=== PATIENT | female | born 1950 | race Hispanic/Latino ===

== ENCOUNTER 2020-12-05 06:49 | Emergency (ER) | payer OTHER ==
[2020-12-05 07:19] LABS: Absolute Lymphocytes (CBC) 4.5 K/uL (0.7-4.9); Basophils % 0.5 % (0-1.3); Lymphocytes % 27.5 % (15.3-44.8); RBC Red Blood Cell Count 3.19 M/uL (3.86-4.86)
[2020-12-05 07:29] LABS: Protime INR 0.96
[2020-12-05] MEDS ORDERED: PANTOPRAZOLE INJ 80 MG in NA CHLORIDE 0.9% 250 ML IV ONE (08:00)
[2020-12-05] MEDS ORDERED: NA CHLORIDE 0.9% 1,000 ML ONE (08:13)
[2020-12-05] MEDS ORDERED: ONDANSETRON 4 MG/2 ML VIAL ONE (08:13)
--- NOTE | 2020-12-05 08:31 | RAD REPORT ---
EXAM DESCRIPTION: CT - Abdomen Pelvis W Contrast - 12/05/2020 7:33 am CLINICAL HISTORY: ABD PAIN COMPARISON: No comparisons TECHNIQUE: Biphasic, helical CT imaging of the abdomen and pelvis was performed following 100 ml non -ionic IV contrast. No oral contrast administered. All CT scans are performed using dose optimization technique as appropriate and may include automated exposure control or mA/KV adjustment according to patient size. FINDINGS: No suspicious findings in the lung bases. The liver, spleen, and pancreas show no suspicious findings. Gallbladder and biliary tree are also wi thout suspicious finding. Liver is borderline fatty infiltrated. Symmetric renal function is seen with no hydronephrosis or suspicious renal mass. No pyelonephritis o r acute parenchymal process. Air is present within the lumen of the urinary bladder presumed to be fr om a catheterization procedure. This needs correlation. No adrenal abnormalities. No uterine abnormal ity or ovarian abnormality seen. No gastric dilatation or gastric wall thickening seen. No small bowel abnormality. The appendix is no rmal. No colon dilatation. No gross evidence for a colon mass. Hemorrhoids or small mucosal lesions c an be occult on CT imaging. No free air, free fluid or inflammatory stranding. No hernia, mass or bulky lymphadenopathy. No suspicious bony findings. Degenerative and postsurgical changes are present in the lumbar spine. IMPRESSION: Contrast enhanced CT abdomen and pelvis showing no acute or emergent finding. No gross evidence for a colon abnormality. Hemorrhoids and small mucosal lesions, possible sources fo r blood, can be occult on CT imaging. Air within the lumen of the urinary bladder is presumed to be from a catheterization procedure. This needs correlation. 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
[2020-12-05 08:51] LABS: ALT/SGPT 21 U/L (12-78); AST/SGOT 6 U/L (15-37); Albumin 2.4 g/dL (3.4-5.0); Alkaline Phosphatase 75 U/L (45-117); BUN Blood Urea Nitrogen 20 mg/dL (7-18); Bicarbonate 23 mmol/L (21-32); Bilirubin Direct < 0.1 mg/dL (0-0.2); Bilirubin Total 0.2 mg/dL (0.2-1.0); Glucose Level 359 mg/dL (74-106); Lipase 114 U/L (73-393); Potassium 4.1 mmol/L (3.5-5.1); Protein, Total 5.9 g/dL (6.4-8.2); Sodium Level 133 mmol/L (136-145)
--- NOTE | 2020-12-05 10:10 | EDPHYS ---
Physician Documentation [facility] Name: Mary Kim Age: 70 yrs Sex: Female : 1950 Arrival Date: 12/05/2020 Time: 07:01 Bed 4 Private MD: ED Physician Leann Dillard HPI: 12/05 08:53 This 70 yrs old Female presents to ER via EMS with complaints of GI Bleeding. ma2 08:53 The patient presents to the emergency department with rectal bleeding, a moderate ma2 amount. Onset: The symptoms/episode began/occurred suddenly, 3 hour(s) ago. Associated signs and symptoms: Pertinent negatives: dizziness at rest, fever, shortness of breath, near-syncope, vomiting. Severity of symptoms: At their worst the symptoms were moderate in the emergency department the symptoms are unchanged. The patient has not experienced similar symptoms in the past. Historical: - Allergies: 07:04 No Known Allergies; bb - Home Meds: 07:05 metformin 500 mg oral TG24 1 tabs daily [Active]; losartan 100 mg oral tab 1 tab once bp daily [Active]; duloxetine 30 mg oral cpDR 1 cap once daily [Active]; atorvastatin 20 mg oral tab 1 tab once daily [Active]; esomeprazole magnesium 40 mg oral cpDR 1 cap once daily [Active]; Spiriva Respimat 2.5 mcg/actuation inhalation mist 2 puffs once daily [Active]; gabapentin enacarbil oral 300 MG oral 1 tab three times a day [Active]; Breo Ellipta 200-25 mcg/dose inhalation dsdv 1 puff once daily [Active]; Nifedipine ER 30 MG Oral 30 mg daily [Active]; montelukast 10 mg oral tab 1 tab once daily [Active]; aspirin 81 mg Oral TbEC 1 tab once daily [Active]; albuterol sulfate 90 mcg/actuation Inhl HFAA 2 puffs every 4-6 hours [Active]; - PMHx: 07:04 Diabetes - NIDDM; Hypertension; bb - PSHx: 07:04 back surgery; arm surgery; L hip replacement; oophorectomy; bb - Immunization history:: Adult Immunizations up to date. - Social history:: Smoking status: Patient denies any tobacco usage or history of. Patient/guardian denies using alcohol, street drugs, The patient lives with family. - Family history:: not pertinent. ROS: 08:53 Constitutional: Negative for fever, chills, and weight loss, Cardiovascular: Negative ma2 for chest pain, palpitations, and edema, Respiratory: Negative for shortness of breath, cough, wheezing, and pleuritic chest pain, Abdomen/GI: Negative for abdominal pain, nausea, diarrhea, and constipation, Back: Negative for injury and pain, MS/Extremity: Negative for injury and deformity, Skin: Negative for injury, rash, and discoloration, Neuro: Negative for headache, weakness, numbness, tingling, and seizure, Psych: Negative for depression, anxiety, suicide ideation, homicidal ideation, and hallucinations. Exam: 08:53 Constitutional: This is a well developed, well nourished patient who is awake, alert, ma2 and in no acute distress. Neck: Trachea midline, no thyromegaly or masses palpated, and no cervical lymphadenopathy. Supple, full range of motion without nuchal rigidity, or vertebral point tenderness. No Meningismus. Chest/axilla: Normal chest wall appearance and motion. Nontender with no deformity. No lesions are appreciated. Cardiovascular: Regular rate and rhythm with a normal S1 and S2. No gallops, murmurs, or rubs. Normal PMI, no JVD. No pulse deficits. Respiratory: Lungs have equal breath sounds bilaterally, clear to auscultation and percussion. No rales, rhonchi or wheezes noted. No increased work of breathing, no retractions or nasal flaring. Abdomen/GI: Soft, non-tender, with normal bowel sounds. No distension or tympany. No guarding or rebound. No evidence of tenderness throughout. Back: No spinal tenderness. No costovertebral tenderness. Full range of motion. Skin: Warm, dry with normal turgor. Normal color with no rashes, no lesions, and no evidence of cellulitis. MS/ Extremity: Pulses equal, no cyanosis. Neurovascular intact. Full, normal range of motion. Neuro: Awake and alert, GCS 15, oriented to person, place, time, and situation. Cranial nerves II-XII grossly intact. Motor strength 5/5 in all extremities. Sensory grossly intact. Cerebellar exam normal. Normal gait. Vital Signs: 07:01 BP 139 / 80; Pulse 96; Resp 18 S; Temp 98.6(O); Pulse Ox 100% on R/A; Weight 95.25 kg bb (R); Height 5 ft. 5 in. (165.10 cm) (R); Pain 0/10; 08:15 BP 122 / 52; Pulse 84; Resp 16; Pulse Ox 96% on R/A; bp 09:15 BP 117 / 47; Pulse 99; Resp 16; Pulse Ox 96% ; bp 10:30 BP 109 / 51; Pulse 95; Resp 17; Pulse Ox 96% ; bp 11:30 BP 117 / 42; Pulse 89; Resp 17; Temp 98.5; Pulse Ox 96% ; bp 07:01 Body Mass Index 34.95 (95.25 kg, 165.10 cm) bb MDM: 07:02 Patient medically screened. ma2 08:53 Differential diagnosis: gastritis, diverticulitis, hemorrhoids, varices. ma2 09:51 Data reviewed: vital signs, nurses notes. Counseling: I had a detailed discussion with ma2 the patient and/or guardian regarding: the historical points, exam findings, and any diagnostic results supporting the discharge/admit diagnosis, the presence of at least one elevated blood pressure reading (>120/80) during this emergency department visit, the need for outpatient follow up. Response to treatment: the patient's symptoms have markedly improved after treatment. ED course: patient had melena in er hb and vs stable . 10:07 Special discussion: paitient needs gi service, not available in our hospital. will ma2 transfer for higher level of care. discussed with dr. [facility] at [facility] and accepted for a transfer . 12/05 07:06 Order name: Basic Metabolic Panel [facility] 12/05 07:06 Order name: CBC with Diff; Complete Time: 08:31 rr5 12/05 07:06 Order name: Hepatic Function; Complete Time: 08:52 rr5 12/05 07:06 Order name: Lipase; Complete Time: 08:52 rr5 12/05 07:06 Order name: TS rr5 12/05 07:06 Order name: Lactate; Complete Time: 08:31 rr5 12/05 07:07 Order name: Basic Metabolic Panel; Complete Time: 08:52 EDMS 12/05 07:09 Order name: PT-INR; Complete Time: 08:31 ma2 12/05 07:09 Order name: Ptt, Activated; Complete Time: 08:31 [facility] 12/05 07:47 Order name: CREATININE WHOLE BLOOD; Complete Time: 08:31 EDMS 12/05 08:24 Order name: Bb Add On eb 12/05 08:45 Order name: ABO/RH no charge; Complete Time: 08:52 EDMS 12/05 07:06 Order name: IV Saline Lock; Complete Time: 07:06 5 12/05 07:06 Order name: Labs collected and sent; Complete Time: 07:06 [facility] 12/05 07:09 Order name: CT Abd/Pelvis - IV Contrast Only; Complete Time: 08:52 [facility] 12/05 07:27 Order name: Labs - recollect needed: recollect chemistry tube abd collect abo no eb charge; Complete Time: 07:30 12/05 09:52 Order name: SARS-COV-2 RT PCR; Complete Time: 10:03 EDMS 12/05 10:05 Order name: Blood Culture Adult (2) [facility] 12/05 10:53 Order name: Lactate Sepsis 2 HR Follow-up EDMS Administered Medications: 07:30 Drug: NS 0.9% 1000 ml Route: IV; Rate: 1 bolus; Site: left antecubital; bp 11:10 Follow up: IV Status: Completed infusion; IV Intake: 100ml bp 08:00 Drug: Pantoprazole 8 mg/hr Route: IV; Rate: 25 ml/hr; Site: left antecubital; bp 11:10 Follow up: IV Status: Infusion continued upon transfer bp 08:00 Drug: Zofran (Ondansetron) 4 mg Route: IVP; Site: left antecubital; bp 11:09 Follow up: Response: No adverse reaction bp 10:30 Drug: Rocephin (cefTRIAXone) 1 grams Route: IV; Rate: calculated rate; Site: left bp antecubital; 11:09 Follow up: IV Status: Completed infusion; IV Intake: 50ml bp 10:30 Drug: Flagyl 500 mg Volume: 100 ml; Route: IVPB; Rate: 200 ml/hr; Infused Over: 30 bp mins; Site: left antecubital; 11:10 Follow up: IV Status: Completed infusion; IV Intake: 100ml bp Disposition: 12/05/20 10:09 Transfer ordered to Other Acute Care Facility. Diagnosis are Gastrointestinal hemorrhage, unspecified, Melena. - Reason for transfer: Higher level of care. - Accepting physician is Dr. Kincaid. - Condition is Stable. - Problem is new. - Symptoms are unchanged. Signatures: Dispatcher [employer] EDMS Suzanne Raza, RN RN Raz Blake RN RN bp Leann Dillard MD MD ma2 Kendra Lafleur Raymond, RN RN rr5 Corrections: (The following items were deleted from the chart) 07: 07:04 Home Meds: Metformin Oral; bb bp 07:22 07:04 Home Meds: losartan oral oral; bb bp 09: 08:27 CORONAVIRUS+MR.LAB.BRZ ordered. EDWI EDMS 12:00 10:09 12/05/2020 10:09 Transfer ordered to Other Acute Care Facility. Diagnosis is bp Gastrointestinal hemorrhage, unspecified; Melena. Reason for transfer: Higher level of care. Accepting physician is Dr. Kincaid. Condition is Stable. Problem is new. Symptoms are unchanged. ma2
--- NOTE | 2020-12-05 10:10 | ER ---
Nurse's Notes [facility] Name: Mary Kim Age: 70 yrs Sex: Female : 1950 Arrival Date: 12/05/2020 Time: 07:01 Bed 4 Private MD: Diagnosis: Gastrointestinal hemorrhage, unspecified;Melena Presentation: 12/05 07:01 Chief complaint: EMS states: they were toned out for report of pt passing out during a bb bowel movement and waking up in a pool of blood on their arrival pt was hypotensive, tachycardic. Coronavirus screen: At this time, the client does not indicate any symptoms associated with coronavirus-19. Ebola Screen: No symptoms or risks identified at this time. Initial Sepsis Screen: Does the patient meet any 2 criteria? No. Patient's initial sepsis screen is negative. Does the patient have a suspected source of infection? No. Patient's initial sepsis screen is negative. Risk Assessment: Do you want to hurt yourself or someone else? Patient reports no desire to harm self or others. Onset of symptoms was December 05, 2020. 07:01 Method Of Arrival: EMS: [facility] 07:01 Acuity: ELIZABETH 3 bb 07:05 Care prior to arrival: Medication(s) given: Normal saline infusion, 1000 mL, zofran 4 bb mg, IV initiated. 18 GA, in the left antecubital area. Triage Assessment: 07:05 General: Appears distressed, uncomfortable, obese, Behavior is calm, cooperative, bp appropriate for age. Pain: Denies pain. EENT: Sclera/Cornea PALE. Neuro: Level of Consciousness is awake, alert, obeys commands, Oriented to Appropriate for age. Cardiovascular: No deficits noted. Rhythm is sinus rhythm. Respiratory: No deficits noted. GI: Reports rectal bleeding. : No signs and/or symptoms were reported regarding the genitourinary system. Derm: Skin is pale, Skin temperature is cool. Musculoskeletal: No deficits noted. Historical: - Allergies: 07:04 No Known Allergies; bb - Home Meds: 07:05 metformin 500 mg oral TG24 1 tabs daily [Active]; losartan 100 mg oral tab 1 tab once bp daily [Active]; duloxetine 30 mg oral cpDR 1 cap once daily [Active]; atorvastatin 20 mg oral tab 1 tab once daily [Active]; esomeprazole magnesium 40 mg oral cpDR 1 cap once daily [Active]; Spiriva Respimat 2.5 mcg/actuation inhalation mist 2 puffs once daily [Active]; gabapentin enacarbil oral 300 MG oral 1 tab three times a day [Active]; Breo Ellipta 200-25 mcg/dose inhalation dsdv 1 puff once daily [Active]; Nifedipine ER 30 MG Oral 30 mg daily [Active]; montelukast 10 mg oral tab 1 tab once daily [Active]; aspirin 81 mg Oral TbEC 1 tab once daily [Active]; albuterol sulfate 90 mcg/actuation Inhl HFAA 2 puffs every 4-6 hours [Active]; - PMHx: 07:04 Diabetes - NIDDM; Hypertension; bb - PSHx: 07:04 back surgery; arm surgery; L hip replacement; oophorectomy; bb - Immunization history:: Adult Immunizations up to date. - Social history:: Smoking status: Patient denies any tobacco usage or history of. Patient/guardian denies using alcohol, street drugs, The patient lives with family. - Family history:: not pertinent. Screenin:05 Abuse screen: Denies threats or abuse. Denies injuries from another. Nutritional bp screening: No deficits noted. Tuberculosis screening: No symptoms or risk factors identified. Fall Risk Fall in past 12 months (25 points). No secondary diagnosis (0 pts). IV access (20 points). Ambulatory Aid- None/Bed Rest/Nurse Assist (0 pts). Gait- Normal/Bed Rest/Wheelchair (0 pts) Mental Status- Oriented to own ability (0 pts). Total Lynch Fall Scale indicates High Risk Score (45 or more points). Fall prevention measures have been instituted. Side Rails Up X 2 Placed Close to Nursing Station Frequent Obs/Assessments Occuring As available patient and family educated on Fall Prevention Program and Strategies. Assessment: 07:05 General: SEE TRIAGE NOTE. bp 07:25 Reassessment: No changes from previously documented assessment. Patient and/or family bp updated on plan of care and expected duration. Pain level reassessed. Patient is alert, oriented x 3, equal unlabored respirations, skin warm/dry/pink. PT TO CT. 07:29 Reassessment: ASHLEY (DAUGHTER) [phone]. bp 08:18 Reassessment: No changes from previously documented assessment. Patient and/or family bp updated on plan of care and expected duration. Pain level reassessed. Patient is alert, oriented x 3, equal unlabored respirations, skin warm/dry/pink. ALL CURRENT ORDERS COMPLETED, RESULTS PENDING. 09:26 Reassessment: No changes from previously documented assessment. Patient and/or family bp updated on plan of care and expected duration. Pain level reassessed. Patient is alert, oriented x 3, equal unlabored respirations, skin warm/dry/pink. PT CONSENTED FOR PRBC TRANSFUSION, BUT TRANSFUSION ON HOLD PER MD. 11:45 Reassessment: REPORT TO OLESYA SCHNEIDER AT [facility]. TRANSPORT PENDING. bp Vital Signs: 07:01 BP 139 / 80; Pulse 96; Resp 18 S; Temp 98.6(O); Pulse Ox 100% on R/A; Weight 95.25 kg bb (R); Height 5 ft. 5 in. (165.10 cm) (R); Pain 0/10; 08:15 BP 122 / 52; Pulse 84; Resp 16; Pulse Ox 96% on R/A; bp 09:15 BP 117 / 47; Pulse 99; Resp 16; Pulse Ox 96% ; bp 10:30 BP 109 / 51; Pulse 95; Resp 17; Pulse Ox 96% ; bp 11:30 BP 117 / 42; Pulse 89; Resp 17; Temp 98.5; Pulse Ox 96% ; bp 07:01 Body Mass Index 34.95 (95.25 kg, 165.10 cm) bb ED Course: 07:00 Maintain EMS IV. Dressing intact. Good blood return noted. Site clean \T\ dry. Gauge \T\ rr 5 site: G18 left AC. 07:00 Initial lab(s) drawn, by me, sent to lab. rr5 07:01 Patient arrived in ED. bb 07:02 Leann Dillard MD is Attending Physician. ma2 07:03 Triage completed. bb 07:04 Arm band placed on Patient placed in an exam room, on a stretcher, on production graphic designer, bb on pulse oximetry. 07:05 Raz Galindo, WYATT is Primary Nurse. bp 07:05 Patient has correct armband on for positive identification. Bed in low position. Call bp light in reach. Side rails up X2. wallpaper printer helper on. Pulse ox on. NIBP on. 07:08 Basic Metabolic Panel Sent. bp 07:33 CT Abd/Pelvis - IV Contrast Only In Process Unspecified. EDMS 09:27 initiated a transfer with SOLIS Cruz from the [facility]. eb 10:[address] Duque the hospitalist housing relocation for [facility] with for patient transfer consultation. 10:46 administrative approval given by SOLIS Cruz/ patient has been accepted to [facility] 5th floor room 504/ Dr. Romelia Duque has accepted the patient in transfer/ report to be called to [phone]. 12:00 No provider procedures requiring assistance completed. Patient transferred, IV remains bp in place. Administered Medications: 07:30 Drug: NS 0.9% 1000 ml Route: IV; Rate: 1 bolus; Site: left antecubital; bp 11:10 Follow up: IV Status: Completed infusion; IV Intake: 100ml bp 08:00 Drug: Pantoprazole 8 mg/hr Route: IV; Rate: 25 ml/hr; Site: left antecubital; bp 11:10 Follow up: IV Status: Infusion continued upon transfer bp 08:00 Drug: Zofran (Ondansetron) 4 mg Route: IVP; Site: left antecubital; bp 11:09 Follow up: Response: No adverse reaction bp 10:30 Drug: Rocephin (cefTRIAXone) 1 grams Route: IV; Rate: calculated rate; Site: left bp antecubital; 11:09 Follow up: IV Status: Completed infusion; IV Intake: 50ml bp 10:30 Drug: Flagyl 500 mg Volume: 100 ml; Route: IVPB; Rate: 200 ml/hr; Infused Over: 30 bp mins; Site: left antecubital; 11:10 Follow up: IV Status: Completed infusion; IV Intake: 100ml bp Intake: 11:09 IV: 50ml; Total: 50ml. bp 11:10 IV: 100ml; Total: 150ml. bp 11:10 IV: 100ml; Total: 250ml. bp Outcome: 10:09 ER care complete, transfer ordered by MD. [place]anton 11:56 Transferred by ground EMS to [facility]. bp 11:56 Condition: stable 11:56 Instructed on the need for transfer. 12:00 Patient left the ED. bp Signatures: Dispatcher [employer] EDMS Suzanne Raza RN RN Raz Blake RN RN bp Leann Dillard MD MD ma2 Kendra Lafleur Raymond RN RN rr5 Corrections: (The following items were deleted from the chart) 07:06 07:05 Care prior to arrival: Medication(s) given: Normal saline infusion, 1000 mL, IV bb initiated. 18 GA, in the left antecubital area, bb 07: 07:04 Home Meds: Metformin Oral; bb bp 07:22 07:04 Home Meds: losartan oral oral; bb bp
[2020-12-05] MEDS ORDERED: METRONIDAZOLE 500mg IVPB 500 MG/100 ML BAG IV ONE (10:50)
[2020-12-05] MEDS ORDERED: CEFTRIAXONE/SWI 1gm 1 GM/10 ML SYR ONE (10:50)
[2020-12-06 02:08] VITALS: O2SAT 96
[2020-12-06 02:12] VITALS: BP 117/42; TEMP 98.5
== END 2020-12-05 12:00 ==
LOC: ER 06:49
DX: K92.1 Melena (principal); Z20.822 Contact with and (suspected) exposure to COVID-19; I10 Essential (primary) hypertension; E11.9 Type 2 diabetes mellitus without complications; Z79.82 Long term (current) use of aspirin; Z96.642 Presence of left artificial hip joint
CPT/HCPCS: 96365; 96367; 87040 ×2; 85025; 80048; 36415; 86900; 86850; 85610; 82565; 86901; 80076; 83605 ×2; 85730; 83690; 74177; 96375; 99285; U0003; Q9967; C9113; J0696; J7050; J7030; J2405

== ENCOUNTER 2021-08-18 17:19 | Emergency (ER) | payer OTHER ==
--- OUTSIDE RECORDS SUMMARY | 2021-08-18 17:23 | XMS REPORT | Continuity of Care Document ---
:1950 Author Organization [facility] t Address [address] [place] [address] Care Team Providers Name Role Phone THALIA Attending Clinician Unavailable THALIA Admitting Clinician Unavailable Problems This patient has no known problems. Allergies, Adverse Reactions, Alerts Allergy Allergy Status Severity Reaction(s) Onset Inactive Treating Comm ents Source Name Type Date Date Clinician IODINE Allergy Active High Swelling [facility] - IOD[facility]: [facility] 00 [facility] NG PRODUCTS Medications This patient has no known medications. Vital Signs Vital Name Observation Time Observation Value Comments Source WEIGHT 2020-12-05 16:27:00 95.255 kg HEIGHT 2020-12-05 16:27:00 157.5 cm WEIGHT 2020-12-05 16:27:00 95.255 kg HEIGHT 2020-12-05 16:27:00 157.5 cm Procedures This patient has no known procedures. Encounters Start End Encounter Admission Attending Care Care Encounter Source Date/Time Date/Time Type Type Clinicians Facility Department ID 2021-06-13 Inpatient ER CECILIO VÁSQUEZ Gastro [id number] [facility] 11:15:23 ADILSON Results Test Description Test Time Test Comments Results Result Comments Source POCT-GLUCOSE METER 2020-12-11 11:49:00 Test Item Value Reference Range Interpretation Comme nts POC-GLUCOSE METER (BEAKER) 182 mg/dL 70-110 H : TESTED AT [facility] [address] [facility] (test code = 1538) [facility] [address]: [facility] [employer] Manager/Techni sarath ID = [id number] for Lilliana Bender HEMOGLOBIN AND [id number] 10:49:00 Test Item Value Reference Range Interpretation Comments HEMOGLOBIN (BEAKER) (test code = 8.6 GM/DL 12.0-15.5 L 410) HEMATOCRIT (BEAKER) (test code = 27.0 % 36.0-46.0 L 411) POCT-GLUCOSE [id number] 07:43:00 Test Item Value Reference Range Interpretation Comments POC-GLUCOSE METER 166 mg/dL 70-110 H : TESTED A T [facility] [address] (BEAKER) (test code [address], = 1538) [facility] [address]: [facility] [employer] Manager/Techni sarath ID = [id number] for Lilliana Santoro BASIC METABOLIC [id number] 06:05:00 Test Item Value Reference Range Interpretation Comments SODIUM (BEAKER) (test 143 meq/L 135-148 code = 381) POTASSIUM (BEAKER) 4.0 meq/L 3.6-5.5 (test code = 379) CHLORIDE (BEAKER) 109 meq/L 98-106 H (test code = 382) CO2 (BEAKER) (test 25 meq/L 20-29 code = 355) BLOOD UREA NITROGEN 9 mg/dL 10-26 L (BEAKER) (test code = 354) CREATININE (BEAKER) 0.85 mg/dL 0.50-1.20 (test code = 358) GLUCOSE RANDOM 177 mg/dL 70-110 H (BEAKER) (test code = 652) CALCIUM (BEAKER) 8.5 mg/dL 8.5-10.5 (test code = 697) EGFR (BEAKER) (test INSUFFIC IENT CLINICAL code = 1092) DATA TO CALCULA TE ESTIMATED GFR. [facility] Manager ID - LITOOperator ID - LITOOperator ID - LITOOperator ID - LITOOperator ID - LITOOperator ID - LITOOperator ID - LITOOperator ID - LITOOperator ID - LITOOperator ID - LITOOperator ID - LITOOperator ID - LITOOperator ID - LITOCBC W/PLT COUNT & AUTO [id number] 05:46:00 Test Item Value Reference Range Interpretation Comments WHITE BLOOD CELL COUNT (BEAKER) 9.4 K/ L 4.0-10.0 (test code = 775) RED BLOOD CELL COUNT (BEAKER) 2.68 M/ L 4.00-5.00 L (test code = 761) HEMOGLOBIN (BEAKER) (test code = 7.9 GM/DL 12.0-15.5 L 410) HEMATOCRIT (BEAKER) (test code = 25.2 % 36.0-46.0 L 411) MEAN CORPUSCULAR VOLUME (BEAKER) 94.0 fL 82.0-99.0 (test code = 753) MEAN CORPUSCULAR HEMOGLOBIN 29.5 pg 27.0-33.0 (BEAKER) (test code = 751) MEAN CORPUSCULAR HEMOGLOBIN CONC 31.3 GM/DL 32.0-36.0 L (BEAKER) (test code = 752) RED CELL DISTRIBUTION WIDTH 13.5 % 12.0-15.0 (BEAKER) (test code = 412) PLATELET COUNT (BEAKER) (test 281 K/CU MM 150-430 code = 756) MEAN PLATELET VOLUME (BEAKER) 11.6 fL 6.0-11.5 H (test code = 754) NUCLEATED RED BLOOD CELLS 0 /100 WBC 0-0 (BEAKER) (test code = 413) NEUTROPHILS RELATIVE PERCENT 53 % (BEAKER) (test code = 429) LYMPHOCYTES RELATIVE PERCENT 32 % (BEAKER) (test code = 430) MONOCYTES RELATIVE PERCENT 10 % (BEAKER) (test code = 431) EOSINOPHILS RELATIVE PERCENT 4 % (BEAKER) (test code = 432) BASOPHILS RELATIVE PERCENT 1 % (BEAKER) (test code = 437) NEUTROPHILS ABSOLUTE COUNT 4.99 K/ L 1.80-8.00 (BEAKER) (test code = 670) LYMPHOCYTES ABSOLUTE COUNT 2.98 K/ L 1.48-4.50 (BEAKER) (test code = 414) MONOCYTES ABSOLUTE COUNT (BEAKER) 0.94 K/ L 0.00-1.30 (test code = 415) EOSINOPHILS ABSOLUTE COUNT 0.38 K/ L 0.00-0.50 (BEAKER) (test code = 416) BASOPHILS ABSOLUTE COUNT (BEAKER) 0.06 K/ L 0.00-0.20 (test code = 417) IMMATURE GRANULOCYTES-RELATIVE 0 % 0-0 PERCENT (BEAKER) (test code = 2801) POCT-GLUCOSE [id number] 20:30:00 Test Item Value Reference Range Interpretation Comments POC-GLUCOSE METER 234 mg/dL 70-110 H [facility] (test code [facility] [address], = 1538) [facility] 77 [address]: [employer] Manager/Techni sarath ID = [id number] for jaswinder Pelaez POCT-GLUCOSE [id number] 17:45:00 Test Item Value Reference Range Interpretation Comments POC-GLUCOSE METER 180 mg/dL 70-110 H : TESTED A T [facility] [address] (BEAKER) (test code [address], = 1538) [facility] [address]: [employer] Manager/Techni sarath ID = [id number] for Joceline Hurley POCT-GLUCOSE [id number] 11:21:00 Test Item Value Reference Range Interpretation Comments POC-GLUCOSE METER 207 mg/dL 70-110 H : TESTED A T [facility] [address] (BEAKER) (test code [address], = 1538) [facility] 77 [address]: [employer] Manager/Techni sarath ID = [id number] for Earnest Hurleynice TISSUE [id number] 09:36:00Surgical Pathology Report Case: [id number] Authorizing Provider: Ronnie Strauss MD Collected: 12/06/2020 07:49 AM Ordering Location: [facility] Med Surg 5th Floor Received: 12/08/2020 07:53 AM Pathologist: Maria Del Rosario Moore MD Specimen: Re ctal, distal ulcer biopsy DISTAL RECTAL ULCER, BIOPSY: - SQUAMOUS/COLONIC MUCOSA WITH HYPERKERATOSIS AND FOCAL ACUTE INFLAMMATION - NEGATIVEFOR DYSPLASIA AND MALIGNANCY - NEGATIVE FOR HSV II VIRAL INCLUSIONS Signing Pathologist Direct Phone Line: [phone] signed by Maria Del Rosario Moore MD on 12/10/2020 at 9:35AMPreliminary result electronically signed by Maria Del Rosario Moore MD on 12/09/2020 at 10:26 AMMG/[id number], [id number], [id number] Distal rectal ulcer biopsy The specimen is received in fixative labeled with the patient's name and medical record number and designated as "rectal", consists of threewhite-elliott tissue fragments ranging in size from 0.3 to 0.5 cm in greatest dimension. All tissue fragments are submitted into A1. MG/ew Performed The interpretation of this case included the use of immunohistochemistry or special stains.[facility] II: NegativeControl Slides Examined: In-house known positive controls were evaluated along with the test tissue. These control slides run alongside of the patients sample show appropriate staining. Internal positive and negative controls when available are evaluated Immunohistochemistry technical testing was performed at [facility], Pathology Laboratory where it was developed and its performance characteristics were determined. It hasnot been cleared or approved by the U.S. Food and Drug Administration. The FDA has determined that such clearance or approval is not necessary. The test is used for clinical purposes. It should not be regarded as investigational or for research. This laboratory is certified under the Clinical Laboratory Improvement Amendments of 1988 (CLIA-88) as qualified to perform high complexity clinical laboratory testing.[facility], Department of Pathology, [address] [place] [address], Joeudj [facility], Department of Pathology, [address] [place] [address], [facility], Department of Pathology, [address] [place], [place] [address], CUSZ-GLUCOSE METER 2020-12-10 07:27:00 Test Item Value Reference Range Interpretation Comments POC-GLUCOSE METER 176 mg/dL 70-110 H : TESTED A T [facility] [address] (BEAKER) (test code [address], = 1538) [place] [address]: [employer] Manager/Techni sarath ID = [id number] for [facility] neena, Joceline BASIC METABOLIC [id number] 05:01:00 Test Item Value Reference Range Interpretation Comments SODIUM (BEAKER) (test 141 meq/L 135-148 code = 381) POTASSIUM (BEAKER) 4.1 meq/L 3.6-5.5 (test code = 379) CHLORIDE (BEAKER) 111 meq/L 98-106 H (test code = 382) CO2 (BEAKER) (test 22 meq/L 20-29 code = 355) BLOOD UREA NITROGEN 6 mg/dL 10-26 L (BEAKER) (test code = 354) CREATININE (BEAKER) 0.86 mg/dL 0.50-1.20 (test code = 358) GLUCOSE RANDOM 195 mg/dL 70-110 H (BEAKER) (test code = 652) CALCIUM (BEAKER) 8.1 mg/dL 8.5-10.5 L (test code = 697) EGFR (BEAKER) (test INSUFFIC IENT CLINICAL code = 1092) DATA TO CALCULA TE ESTIMATED GFR. [facility] Manager ID - JUSTINOperator ID - JUSTINOperator ID - JUSTINOperator ID - JUSTINOperator ID - JUSTINOperator ID - JUSTINOperator ID - JUSTINOperator ID - JUSTINOperator ID - JUSTINOperator ID - JUSTINOperator ID - JUSTINOperator ID - JUSTINOperator ID - JUSTINCBC W/PLT COUNT & AUTO [id number] 04:36:00 Test Item Value Reference Range Interpretation Comments WHITE BLOOD CELL COUNT (BEAKER) 10.7 K/ L 4.0-10.0 H (test code = 775) RED BLOOD CELL COUNT (BEAKER) 2.82 M/ L 4.00-5.00 L (test code = 761) HEMOGLOBIN (BEAKER) (test code = 8.5 GM/DL 12.0-15.5 L 410) HEMATOCRIT (BEAKER) (test code = 26.3 % 36.0-46.0 L 411) MEAN CORPUSCULAR VOLUME (BEAKER) 93.3 fL 82.0-99.0 (test code = 753) MEAN CORPUSCULAR HEMOGLOBIN 30.1 pg 27.0-33.0 (BEAKER) (test code = 751) MEAN CORPUSCULAR HEMOGLOBIN CONC 32.3 GM/DL 32.0-36.0 (BEAKER) (test code = 752) RED CELL DISTRIBUTION WIDTH 13.9 % 12.0-15.0 (BEAKER) (test code = 412) PLATELET COUNT (BEAKER) (test 276 K/CU MM 150-430 code = 756) MEAN PLATELET VOLUME (BEAKER) 11.2 fL 6.0-11.5 (test code = 754) NUCLEATED RED BLOOD CELLS 0 /100 WBC 0-0 (BEAKER) (test code = 413) NEUTROPHILS RELATIVE PERCENT 56 % (BEAKER) (test code = 429) LYMPHOCYTES RELATIVE PERCENT 29 % (BEAKER) (test code = 430) MONOCYTES RELATIVE PERCENT 10 % (BEAKER) (test code = 431) EOSINOPHILS RELATIVE PERCENT 4 % (BEAKER) (test code = 432) BASOPHILS RELATIVE PERCENT 1 % (BEAKER) (test code = 437) NEUTROPHILS ABSOLUTE COUNT 5.97 K/ L 1.80-8.00 (BEAKER) (test code = 670) LYMPHOCYTES ABSOLUTE COUNT 3.14 K/ L 1.48-4.50 (BEAKER) (test code = 414) MONOCYTES ABSOLUTE COUNT (BEAKER) 1.03 K/ L 0.00-1.30 (test code = 415) EOSINOPHILS ABSOLUTE COUNT 0.46 K/ L 0.00-0.50 (BEAKER) (test code = 416) BASOPHILS ABSOLUTE COUNT (BEAKER) 0.10 K/ L 0.00-0.20 (test code = 417) IMMATURE GRANULOCYTES-RELATIVE 0 % 0-0 PERCENT (BEAKER) (test code = 2801) POCT-GLUCOSE [id number] 21:00:00 Test Item Value Reference Range Interpretation Comments POC-GLUCOSE METER 157 mg/dL 70-110 H : TESTED A T [facility] (BEAKER) (test code [facility], = 1538) [place] [address]: [employer] Manager/Techni sarath ID = [id number] for Oyeb raman, Lyudmila POCT-GLUCOSE [id number] 17:13:00 Test Item Value Reference Range Interpretation Comments POC-GLUCOSE METER 194 mg/dL 70-110 H : TESTED A T [facility] (BEAKER) (test code [facility] = 1538) [place] [id number]: [employer] Manager/Techni sarath ID = [id number] for Jim h, Elizabeth POCT-GLUCOSE [id number] 12:57:00 Test Item Value Reference Range Interpretation Comments POC-GLUCOSE METER 157 mg/dL 70-110 H : TESTED A T [facility] (BEAKER) (test code [facility] = 1538) [place] [id number]: [employer] Manager/Techni sarath ID = [id number] for Jim h, Elizabeth POCT-GLUCOSE [id number] 11:56:00 Test Item Value Reference Range Interpretation Comments POC-GLUCOSE METER 169 mg/dL 70-110 H : TESTED A T [facility] (BEAKER) ([facility] = 1538[facility] [place] [address]: [employer] Manager/Techni sarath ID = [id number] for Jennifer Alas HEMORRHAGE IMAGING, [id number] 11:22:00Unlisted Reason for Exam - Click Yes and Enter Reason Below->No [facility] : 1950 Sex: FFINAL REPORT PROCEDURE: HEMORRHAGE STUDY with RBCs CPT CODE: 09993 INDICATION: Gastrointestinal Bleeding PROTOCOL: 25.4 mCi of Tc-99m was injectedintravenously as labeled autologous red blood cells. Flow images of the abdomen were obtained, followed by serial images for approximately 60 minutes. Additional images were obtained nine hours after tracer injection. FINDINGS: There is physiological tracer distribution in the blood pool. IMPRESSION: Negative study. No evidence of active hemorrhage is seen. Signed: Orville Diggs Verified Date/Time: 12/09/2020 11:22:23 Reading Location: [address] Reading Room POCT-GLUCOSE [id number] 08:00:00 Test Item Value Reference Range Interpretation Comments POC-GLUCOSE METER 213 mg/dL 70-110 H : TESTED A T [facility] [address] (BEAKER) (test code [address], = 1538) [place] [id number]: [employer] Manager/Techni sarath ID = [id number] for Jim Elizabeth oscar BASIC METABOLIC [id number] 05:35:00 Test Item Value Reference Range Interpretation Comments SODIUM (BEAKER) (test 143 meq/L 135-148 code = 381) POTASSIUM (BEAKER) 3.7 meq/L 3.6-5.5 (test code = 379) CHLORIDE (BEAKER) 109 meq/L 98-106 H (test code = 382) CO2 (BEAKER) (test 26 meq/L 20-29 code = 355) BLOOD UREA NITROGEN 6 mg/dL 10-26 L (BEAKER) (test code = 354) CREATININE (BEAKER) 0.85 mg/dL 0.50-1.20 (test code = 358) GLUCOSE RANDOM 208 mg/dL 70-110 H (BEAKER) (test code = 652) CALCIUM (BEAKER) 7.9 mg/dL 8.5-10.5 L (test code = 697) EGFR (BEAKER) (test INSUFFIC IENT CLINICAL code = 1092) DATA TO CALCULA TE ESTIMATED GFR. [facility] [employer] [facility] Manager ID - [id number] ID - [id number] ID - [id number] ID - [id number] ID - [id number] ID - [id number] ID - [id number] ID - [id number] ID - [id number] ID - [id number] ID - [id number] ID - [id number] ID - [id number] W/PLT COUNT & AUTO [id number] 05:13:00 Test Item Value Reference Range Interpretation Comments WHITE BLOOD CELL COUNT (BEAKER) 9.9 K/ L 4.0-10.0 (test code = 775) RED BLOOD CELL COUNT (BEAKER) 2.28 M/ L 4.00-5.00 L (test code = 761) HEMOGLOBIN (BEAKER) (test code = 6.8 GM/DL 12.0-15.5 L 410) HEMATOCRIT (BEAKER) (test code = 22.0 % 36.0-46.0 L 411) MEAN CORPUSCULAR VOLUME (BEAKER) 96.5 fL 82.0-99.0 (test code = 753) MEAN CORPUSCULAR HEMOGLOBIN 29.8 pg 27.0-33.0 (BEAKER) (test code = 751) MEAN CORPUSCULAR HEMOGLOBIN CONC 30.9 GM/DL 32.0-36.0 L (BEAKER) (test code = 752) RED CELL DISTRIBUTION WIDTH 12.5 % 12.0-15.0 (BEAKER) (test code = 412) PLATELET COUNT (BEAKER) (test 234 K/CU MM 150-430 code = 756) MEAN PLATELET VOLUME (BEAKER) 11.1 fL 6.0-11.5 (test code = 754) NUCLEATED RED BLOOD CELLS 0 /100 WBC 0-0 (BEAKER) (test code = 413) NEUTROPHILS RELATIVE PERCENT 58 % (BEAKER) (test code = 429) LYMPHOCYTES RELATIVE PERCENT 28 % (BEAKER) (test code = 430) MONOCYTES RELATIVE PERCENT 9 % (BEAKER) (test code = 431) EOSINOPHILS RELATIVE PERCENT 4 % (BEAKER) (test code = 432) BASOPHILS RELATIVE PERCENT 1 % (BEAKER) (test code = 437) NEUTROPHILS ABSOLUTE COUNT 5.71 K/ L 1.80-8.00 (BEAKER) (test code = 670) LYMPHOCYTES ABSOLUTE COUNT 2.77 K/ L 1.48-4.50 (BEAKER) (test code = 414) MONOCYTES ABSOLUTE COUNT (BEAKER) 0.91 K/ L 0.00-1.30 (test code = 415) EOSINOPHILS ABSOLUTE COUNT 0.36 K/ L 0.00-0.50 (BEAKER) (test code = 416) BASOPHILS ABSOLUTE COUNT (BEAKER) 0.08 K/ L 0.00-0.20 (test code = 417) IMMATURE GRANULOCYTES-RELATIVE 0 % 0-0 PERCENT (BEAKER) (test code = 2801) POCT-GLUCOSE [id number] 21:05:00 Test Item Value Reference Range Interpretation Comments POC-GLUCOSE METER 198 mg/dL 70-110 H : TESTED A T [facility] (BEAKER) ([facility] = 1538[facility] [place] [address]: [employer] Manager/Techni sarath ID = [id number] for Will jonelle Aline POCT-GLUCOSE [id number] 17:42:00 Test Item Value Reference Range Interpretation Comments POC-GLUCOSE METER 188 mg/dL 70-110 H : TESTED A T [facility] [address] (BEAKER) (test code [address], = 1538) [place] [id number]: [employer] Manager/Techni sarath ID = [id number] for Buff ord, Joceline CBC W/PLT COUNT & AUTO [id number] 15:05:00 Test Item Value Reference Range Interpretation Comments WHITE BLOOD CELL COUNT (BEAKER) 10.8 K/ L 4.0-10.0 H (test code = 775) RED BLOOD CELL COUNT (BEAKER) 2.57 M/ L 4.00-5.00 L (test code = 761) HEMOGLOBIN (BEAKER) (test code = 7.7 GM/DL 12.0-15.5 L 410) HEMATOCRIT (BEAKER) (test code = 24.5 % 36.0-46.0 L 411) MEAN CORPUSCULAR VOLUME (BEAKER) 95.3 fL 82.0-99.0 (test code = 753) MEAN CORPUSCULAR HEMOGLOBIN 30.0 pg 27.0-33.0 (BEAKER) (test code = 751) MEAN CORPUSCULAR HEMOGLOBIN CONC 31.4 GM/DL 32.0-36.0 L (BEAKER) (test code = 752) RED CELL DISTRIBUTION WIDTH 12.3 % 12.0-15.0 (BEAKER) (test code = 412) PLATELET COUNT (BEAKER) (test 264 K/CU MM 150-430 code = 756) MEAN PLATELET VOLUME (BEAKER) 11.0 fL 6.0-11.5 (test code = 754) NUCLEATED RED BLOOD CELLS 0 /100 WBC 0-0 (BEAKER) (test code = 413) NEUTROPHILS RELATIVE PERCENT 63 % (BEAKER) (test code = 429) LYMPHOCYTES RELATIVE PERCENT 24 % (BEAKER) (test code = 430) MONOCYTES RELATIVE PERCENT 9 % (BEAKER) (test code = 431) EOSINOPHILS RELATIVE PERCENT 3 % (BEAKER) (test code = 432) BASOPHILS RELATIVE PERCENT 1 % (BEAKER) (test code = 437) NEUTROPHILS ABSOLUTE COUNT 6.78 K/ L 1.80-8.00 (BEAKER) (test code = 670) LYMPHOCYTES ABSOLUTE COUNT 2.54 K/ L 1.48-4.50 (BEAKER) (test code = 414) MONOCYTES ABSOLUTE COUNT (BEAKER) 0.91 K/ L 0.00-1.30 (test code = 415) EOSINOPHILS ABSOLUTE COUNT 0.35 K/ L 0.00-0.50 (BEAKER) (test code = 416) BASOPHILS ABSOLUTE COUNT (BEAKER) 0.11 K/ L 0.00-0.20 (test code = 417) IMMATURE GRANULOCYTES-RELATIVE 1 % 0-0 H PERCENT (BEAKER) (test code = 2801) POCT-GLUCOSE [id number] 11:27:00 Test Item Value Reference Range Interpretation Comments POC-GLUCOSE METER 188 mg/dL 70-110 H : TESTED A T [facility] [address] (BEAKER) (test code [address], = 1538) [place] [id number]: [employer] Manager/Techni sarath ID = [id number] for Joceline Hurley POCT-GLUCOSE [id number] 07:30:00 Test Item Value Reference Range Interpretation Comments POC-GLUCOSE METER 184 mg/dL 70-110 H : TESTED A T [facility] (BEAKER) (test code [address] [facility] = 1538) [place] [id number]: [employer] Manager/Techni sarath ID = [id number] for Tariq chaudhary, Joceline BASIC METABOLIC [id number] 05:42:00 Test Item Value Reference Range Interpretation Comments SODIUM (BEAKER) (test 143 meq/L 135-148 code = 381) POTASSIUM (BEAKER) 3.5 meq/L 3.6-5.5 L (test code = 379) CHLORIDE (BEAKER) 109 meq/L 98-106 H (test code = 382) CO2 (BEAKER) (test 25 meq/L 20-29 code = 355) BLOOD UREA NITROGEN 5 mg/dL 10-26 L (BEAKER) (test code = 354) CREATININE (BEAKER) 0.88 mg/dL 0.50-1.20 (test code = 358) GLUCOSE RANDOM 191 mg/dL 70-110 H (BEAKER) (test code = 652) CALCIUM (BEAKER) 8.3 mg/dL 8.5-10.5 L (test code = 697) EGFR (BEAKER) (test INSUFFIC IENT CLINICAL code = 1092) DATA TO CALCULA TE ESTIMATED GFR. [employer] Manager ID - [id number] ID - [id number] ID - [id number] ID - [id number] ID - [id number] ID - [id number] ID - [id number] ID - [id number] ID - [id number] ID - [id number] 05:40:00 Test Item Value Reference Range Interpretation Comments MAGNESIUM (BEAKER) (test code = 1.7 mg/dL 1.5-3.0 627) [employer] Manager ID - [id number] ID - [id number] ID - [id number] ID - [id number] CBC W/PLT COUNT & AUTO [id number] 05:27:00 Test Item Value Reference Range Interpretation Comments WHITE BLOOD CELL COUNT (BEAKER) 9.0 K/ L 4.0-10.0 (test code = 775) RED BLOOD CELL COUNT (BEAKER) 2.45 M/ L 4.00-5.00 L (test code = 761) HEMOGLOBIN (BEAKER) (test code = 7.3 GM/DL 12.0-15.5 L 410) HEMATOCRIT (BEAKER) (test code = 23.8 % 36.0-46.0 L 411) MEAN CORPUSCULAR VOLUME (BEAKER) 97.1 fL 82.0-99.0 (test code = 753) MEAN CORPUSCULAR HEMOGLOBIN 29.8 pg 27.0-33.0 (BEAKER) (test code = 751) MEAN CORPUSCULAR HEMOGLOBIN CONC 30.7 GM/DL 32.0-36.0 L (BEAKER) (test code = 752) RED CELL DISTRIBUTION WIDTH 12.4 % 12.0-15.0 (BEAKER) (test code = 412) PLATELET COUNT (BEAKER) (test 232 K/CU MM 150-430 code = 756) MEAN PLATELET VOLUME (BEAKER) 11.1 fL 6.0-11.5 (test code = 754) NUCLEATED RED BLOOD CELLS 0 /100 WBC 0-0 (BEAKER) (test code = 413) NEUTROPHILS RELATIVE PERCENT 54 % (BEAKER) (test code = 429) LYMPHOCYTES RELATIVE PERCENT 32 % (BEAKER) (test code = 430) MONOCYTES RELATIVE PERCENT 9 % (BEAKER) (test code = 431) EOSINOPHILS RELATIVE PERCENT 4 % (BEAKER) (test code = 432) BASOPHILS RELATIVE PERCENT 1 % (BEAKER) (test code = 437) NEUTROPHILS ABSOLUTE COUNT 4.86 K/ L 1.80-8.00 (BEAKER) (test code = 670) LYMPHOCYTES ABSOLUTE COUNT 2.87 K/ L 1.48-4.50 (BEAKER) (test code = 414) MONOCYTES ABSOLUTE COUNT (BEAKER) 0.80 K/ L 0.00-1.30 (test code = 415) EOSINOPHILS ABSOLUTE COUNT 0.40 K/ L 0.00-0.50 (BEAKER) (test code = 416) BASOPHILS ABSOLUTE COUNT (BEAKER) 0.08 K/ L 0.00-0.20 (test code = 417) IMMATURE GRANULOCYTES-RELATIVE 0 % 0-0 PERCENT (BEAKER) (test code = 2801) POCT-GLUCOSE [id number] 21:42:00 Test Item Value Reference Range Interpretation Comments POC-GLUCOSE METER 192 mg/dL 70-110 H : TESTED A T [facility] [address]17 (BEAKER) (test code [facility] [address], = 1538) [place] [id number]: [facility] [employer] [facility] Manager/Techni sarath ID = [id number] for Annamaria Kaufman POCT-GLUCOSE [id number] 15:32:00 Test Item Value Reference Range Interpretation Comments POC-GLUCOSE METER 178 mg/dL 70-110 H : TESTED A T [facility] [address] (BEAKER) ([facility] [address] = [address]) [place] [id number]: [facility] Manager/Techni sarath ID = [id number] for Jasmine Chen POCT-GLUCOSE [id number] 11:20:00 Test Item Value Reference Range Interpretation Comments POC-GLUCOSE METER 203 mg/dL 70-110 H : TESTED A T [facility] [address] (BEAKER) ([facility] [address] = [address]) [place] [id number]: [facility] Manager/Techni sarath ID = [id number] for Jasmine Chen POCT-GLUCOSE [id number] 07:43:00 Test Item Value Reference Range Interpretation Comments POC-GLUCOSE METER 194 mg/dL 70-110 H : TESTED A T [facility] [address] (BEAKER) ([facility] [address] = [address]) [place] [id number]: [facility] Manager/Techni sarath ID = [id number] for Jasmine Chen BASIC METABOLIC [id number] 06:24:00 Test Item Value Reference Range Interpretation Comments SODIUM (BEAKER) (test 142 meq/L 135-148 code = 381) POTASSIUM (BEAKER) 3.9 meq/L 3.6-5.5 (test code = 379) CHLORIDE (BEAKER) 110 meq/L 98-106 H (test code = 382) CO2 (BEAKER) (test 26 meq/L 20-29 code = 355) BLOOD UREA NITROGEN 8 mg/dL 10-26 L (BEAKER) (test code = 354) CREATININE (BEAKER) 0.90 mg/dL 0.50-1.20 (test code = 358) GLUCOSE RANDOM 215 mg/dL 70-110 H (BEAKER) (test code = 652) CALCIUM (BEAKER) 8.2 mg/dL 8.5-10.5 L (test code = 697) EGFR (BEAKER) (test INSUFFIC IENT CLINICAL code = 1092) DATA TO CALCULA TE ESTIMATED GFR. [facility] Manager ID - [id number] ID - [id number] ID - [id number] ID - [id number] ID - [id number] ID - [id number] ID - [id number] ID - [id number] ID - [id number] ID - [id number] 06:22:00 Test Item Value Reference Range Interpretation Comments MAGNESIUM (BEAKER) (test code = 1.9 mg/dL 1.5-3.0 627) [facility] Manager ID - [id number] ID - [id number] ID - [id number] ID - [id number] CBC W/PLT COUNT & AUTO [id number] 06:03:00 Test Item Value Reference Range Interpretation Comments WHITE BLOOD CELL COUNT (BEAKER) 8.0 K/ L 4.0-10.0 (test code = 775) RED BLOOD CELL COUNT (BEAKER) 2.46 M/ L 4.00-5.00 L (test code = 761) HEMOGLOBIN (BEAKER) (test code = 7.3 GM/DL 12.0-15.5 L 410) HEMATOCRIT (BEAKER) (test code = 23.9 % 36.0-46.0 L 411) MEAN CORPUSCULAR VOLUME (BEAKER) 97.2 fL 82.0-99.0 (test code = 753) MEAN CORPUSCULAR HEMOGLOBIN 29.7 pg 27.0-33.0 (BEAKER) (test code = 751) MEAN CORPUSCULAR HEMOGLOBIN CONC 30.5 GM/DL 32.0-36.0 L (BEAKER) (test code = 752) RED CELL DISTRIBUTION WIDTH 12.4 % 12.0-15.0 (BEAKER) (test code = 412) PLATELET COUNT (BEAKER) (test 210 K/CU MM 150-430 code = 756) MEAN PLATELET VOLUME (BEAKER) 11.1 fL 6.0-11.5 (test code = 754) NUCLEATED RED BLOOD CELLS 0 /100 WBC 0-0 (BEAKER) (test code = 413) NEUTROPHILS RELATIVE PERCENT 53 % (BEAKER) (test code = 429) LYMPHOCYTES RELATIVE PERCENT 31 % (BEAKER) (test code = 430) MONOCYTES RELATIVE PERCENT 10 % (BEAKER) (test code = 431) EOSINOPHILS RELATIVE PERCENT 5 % (BEAKER) (test code = 432) BASOPHILS RELATIVE PERCENT 1 % (BEAKER) (test code = 437) NEUTROPHILS ABSOLUTE COUNT 4.23 K/ L 1.80-8.00 (BEAKER) (test code = 670) LYMPHOCYTES ABSOLUTE COUNT 2.44 K/ L 1.48-4.50 (BEAKER) (test code = 414) MONOCYTES ABSOLUTE COUNT (BEAKER) 0.77 K/ L 0.00-1.30 (test code = 415) EOSINOPHILS ABSOLUTE COUNT 0.41 K/ L 0.00-0.50 (BEAKER) (test code = 416) BASOPHILS ABSOLUTE COUNT (BEAKER) 0.07 K/ L 0.00-0.20 (test code = 417) IMMATURE GRANULOCYTES-RELATIVE 0 % 0-0 PERCENT (BEAKER) (test code = 2801) POCT-GLUCOSE [id number] 23:16:00 Test Item Value Reference Range Interpretation Comments POC-GLUCOSE METER 230 mg/dL 70-110 H : TESTED A T [address] (BEAKER) (test code [facility] [address], = 1538) [place] [id number]: [employer] Manager/Techni sarath ID = [id number] for SwatiLyudmila schofield POCT-GLUCOSE [id number] 17:27:00 Test Item Value Reference Range Interpretation Comments POC-GLUCOSE METER 174 mg/dL 70-110 H : TESTED A T [address] (BEAKER) (test [facility] [address], = [address]) [place] [address]: [employer] Manager/Techni sarath ID = [id number] for Lilliana Santoro POCT-GLUCOSE [id number] 11:13:00 Test Item Value Reference Range Interpretation Comments POC-GLUCOSE METER 295 mg/dL 70-110 H : TESTED A T [address] (BEAKER) (test code [address], = 15[address]) [place] [id number]: [employer] Manager/Techni sarath ID = [id number] for Lilliana Santoro POCT-GLUCOSE [id number] 07:22:00 Test Item Value Reference Range Interpretation Comments POC-GLUCOSE METER 251 mg/dL 70-110 H : TESTED A T [address] (BEAKER) (test code [address], = 1538) [place] [id number]: [employer] Manager/Techni sarath ID = [id number] for Lilliana Santoro [id number] 06:30:00 Test Item Value Reference Range Interpretation Comments PROTIME (BEAKER) (test 11.1 seconds 9.3-12.0 Final Information code = 759) (Auto Output) INR (BEAKER) (test 1.00 See_Comment Final Inf ormation code = 370) (Auto Output) [Automated mess age] The system [employer] generated this result transmit samir reference range : <=5.90. The reference range was not used to interpret this result as normal/abnormal . PARTIAL THROMBOPLASTIN 24.1 seconds 23.0-35.0 Final Information TIME (BEAKER) (test (Auto Ou tput) code = 760) RECOMMENDED COUMADIN/WARFARIN INR THERAPY RANGESSTANDARD DOSE: 2.0 - 3.0 Includes: PROPHYLAXIS forvenous thrombosis, systemic embolization; TREATMENT for venous thrombosis and/or pulmonary embolus.HIGH RISK: Target INR is 2.5-3.5 for patients with mechanical heart valves.BASIC METABOLIC [id number] 06:29:00 Test Item Value Reference Range Interpretation Comments SODIUM (BEAKER) (test 142 meq/L 135-148 code = 381) POTASSIUM (BEAKER) 4.0 meq/L 3.6-5.5 (test code = 379) CHLORIDE (BEAKER) 109 meq/L 98-106 H (test code = 382) CO2 (BEAKER) (test 25 meq/L 20-29 code = 355) BLOOD UREA NITROGEN 11 mg/dL 10-26 (BEAKER) (test code = 354) CREATININE (BEAKER) 0.95 mg/dL 0.50-1.20 (test code = 358) GLUCOSE RANDOM 234 mg/dL 70-110 H (BEAKER) (test code = 652) CALCIUM (BEAKER) 7.8 mg/dL 8.5-10.5 L (test code = 697) EGFR (BEAKER) (test INSUFFIC IENT CLINICAL code = 1092) DATA TO CALCULA TE ESTIMATED GFR. [employer] Manager ID - [id number] ID - [id number] ID - [id number] ID - [id number] ID - [id number] ID - [id number] ID - [id number] ID - [id number] ID - [id number] ID - [id number] 06:28:00 Test Item Value Reference Range Interpretation Comments MAGNESIUM (BEAKER) (test code = 1.5 mg/dL 1.5-3.0 627) [employer] Manager ID - [id number] ID - [id number] ID - [id number] ID - [id number] W/PLT COUNT & AUTO [id number] 06:20:00 Test Item Value Reference Range Interpretation Comments WHITE BLOOD CELL COUNT (BEAKER) 10.2 K/ L 4.0-10.0 H (test code = 775) RED BLOOD CELL COUNT (BEAKER) 2.70 M/ L 4.00-5.00 L (test code = 761) HEMOGLOBIN (BEAKER) (test code = 8.1 GM/DL 12.0-15.5 L 410) HEMATOCRIT (BEAKER) (test code = 25.7 % 36.0-46.0 L 411) MEAN CORPUSCULAR VOLUME (BEAKER) 95.2 fL 82.0-99.0 (test code = 753) MEAN CORPUSCULAR HEMOGLOBIN 30.0 pg 27.0-33.0 (BEAKER) (test code = 751) MEAN CORPUSCULAR HEMOGLOBIN CONC 31.5 GM/DL 32.0-36.0 L (BEAKER) (test code = 752) RED CELL DISTRIBUTION WIDTH 12.4 % 12.0-15.0 (BEAKER) (test code = 412) PLATELET COUNT (BEAKER) (test 231 K/CU MM 150-430 code = 756) MEAN PLATELET VOLUME (BEAKER) 11.1 fL 6.0-11.5 (test code = 754) NUCLEATED RED BLOOD CELLS 0 /100 WBC 0-0 (BEAKER) (test code = 413) NEUTROPHILS RELATIVE PERCENT 62 % (BEAKER) (test code = 429) LYMPHOCYTES RELATIVE PERCENT 27 % (BEAKER) (test code = 430) MONOCYTES RELATIVE PERCENT 8 % (BEAKER) (test code = 431) EOSINOPHILS RELATIVE PERCENT 2 % (BEAKER) (test code = 432) BASOPHILS RELATIVE PERCENT 1 % (BEAKER) (test code = 437) NEUTROPHILS ABSOLUTE COUNT 6.29 K/ L 1.80-8.00 (BEAKER) (test code = 670) LYMPHOCYTES ABSOLUTE COUNT 2.79 K/ L 1.48-4.50 (BEAKER) (test code = 414) MONOCYTES ABSOLUTE COUNT (BEAKER) 0.85 K/ L 0.00-1.30 (test code = 415) EOSINOPHILS ABSOLUTE COUNT 0.16 K/ L 0.00-0.50 (BEAKER) (test code = 416) BASOPHILS ABSOLUTE COUNT (BEAKER) 0.07 K/ L 0.00-0.20 (test code = 417) IMMATURE GRANULOCYTES-RELATIVE 0 % 0-0 PERCENT (BEAKER) (test code = 2801) POCT-GLUCOSE [id number] 21:59:00 Test Item Value Reference Range Interpretation Comments POC-GLUCOSE METER 192 mg/dL 70-110 H : TESTED A T [address]17 (BEAKER) (test code [facility], = 1538) [place] [id number]: [employer] Manager/Techni sarath ID = [id number] for Lyudmila Mcclure POCT-GLUCOSE [id number] 18:59:00 Test Item Value Reference Range Interpretation Comments POC-GLUCOSE METER 227 mg/dL 70-110 H : TESTED A T [address] (BEAKER) (test code [facility] [address], = 1538) [facility] [address]: [employer] Manager/Techni sarath ID = [id number] for Lilliana Santoro CBC W/PLT COUNT & AUTO [id number] 17:23:00 Test Item Value Reference Range Interpretation Comments WHITE BLOOD CELL COUNT (BEAKER) 12.4 K/ L 4.0-10.0 H (test code = 775) RED BLOOD CELL COUNT (BEAKER) 3.00 M/ L 4.00-5.00 L (test code = 761) HEMOGLOBIN (BEAKER) (test code = 9.1 GM/DL 12.0-15.5 L 410) HEMATOCRIT (BEAKER) (test code = 28.4 % 36.0-46.0 L 411) MEAN CORPUSCULAR VOLUME (BEAKER) 94.7 fL 82.0-99.0 (test code = 753) MEAN CORPUSCULAR HEMOGLOBIN 30.3 pg 27.0-33.0 (BEAKER) (test code = 751) MEAN CORPUSCULAR HEMOGLOBIN CONC 32.0 GM/DL 32.0-36.0 (BEAKER) (test code = 752) RED CELL DISTRIBUTION WIDTH 12.1 % 12.0-15.0 (BEAKER) (test code = 412) PLATELET COUNT (BEAKER) (test 267 K/CU MM 150-430 code = 756) MEAN PLATELET VOLUME (BEAKER) 11.1 fL 6.0-11.5 (test code = 754) NUCLEATED RED BLOOD CELLS 0 /100 WBC 0-0 (BEAKER) (test code = 413) NEUTROPHILS RELATIVE PERCENT 76 % (BEAKER) (test code = 429) LYMPHOCYTES RELATIVE PERCENT 17 % (BEAKER) (test code = 430) MONOCYTES RELATIVE PERCENT 6 % (BEAKER) (test code = 431) EOSINOPHILS RELATIVE PERCENT 0 % (BEAKER) (test code = 432) BASOPHILS RELATIVE PERCENT 1 % (BEAKER) (test code = 437) NEUTROPHILS ABSOLUTE COUNT 9.45 K/ L 1.80-8.00 H (BEAKER) (test code = 670) LYMPHOCYTES ABSOLUTE COUNT 2.09 K/ L 1.48-4.50 (BEAKER) (test code = 414) MONOCYTES ABSOLUTE COUNT (BEAKER) 0.79 K/ L 0.00-1.30 (test code = 415) EOSINOPHILS ABSOLUTE COUNT 0.01 K/ L 0.00-0.50 (BEAKER) (test code = 416) BASOPHILS ABSOLUTE COUNT (BEAKER) 0.06 K/ L 0.00-0.20 (test code = 417) IMMATURE GRANULOCYTES-RELATIVE 0 % 0-0 PERCENT (BEAKER) (test code = 2801) LACTIC ACID, [id number] 17:22:00 Test Item Value Reference Range Interpretation Comments LACTATE BLOOD 2.34 mmol/L See_Comment HH [Automated me ssage] VENOUS (2) (BEAKER) The syst em which (test code = 2872) generated this result transmitted ref erence range: 0.50-<2. 00. The reference range was not used to interpr et this result as normal/abnormal . [employer] Manager ID - [id number] ID - [id number] ID - [id number] ID - [id number] METABOLIC [id number] 17:22:00 Test Item Value Reference Range Interpretation Comments TOTAL PROTEIN 6.7 gm/dL 6.0-8.5 (BEAKER) (test code = 770) ALBUMIN (BEAKER) 3.5 g/dL 3.5-5.0 (test code = 1145) ALKALINE PHOSPHATASE 77 U/L 30-115 (BEAKER) (test code = 346) BILIRUBIN TOTAL 0.3 mg/dL 0.1-1.2 (BEAKER) (test code = 377) SODIUM (BEAKER) (test 141 meq/L 135-148 code = 381) POTASSIUM (BEAKER) 3.9 meq/L 3.6-5.5 (test code = 379) CHLORIDE (BEAKER) 107 meq/L 98-106 H (test code = 382) CO2 (BEAKER) (test 21 meq/L 20-29 code = 355) BLOOD UREA NITROGEN 15 mg/dL 10-26 (BEAKER) (test code = 354) CREATININE (BEAKER) 0.89 mg/dL 0.50-1.20 (test code = 358) GLUCOSE RANDOM 246 mg/dL 70-110 H (BEAKER) (test code = 652) CALCIUM (BEAKER) 7.9 mg/dL 8.5-10.5 L (test code = 697) AST (SGOT) (BEAKER) 13 U/L 5-40 (test code = 353) ALT (SGPT) (BEAKER) 21 U/L 5-50 (test code = 347) EGFR (BEAKER) (test INSUFFIC IENT CLINICAL code = 1092) DATA TO CALCULA TE ESTIMATED GFR. [employer] Manager ID - [id number] ID - [id number] ID - [id number] ID - [id number] ID - [id number] ID - [id number] ID - [id number] ID - [id number] ID - [id number] ID - [id number] ID - [id number] ID - [id number] ID - [id number] ID - [id number] ID - [id number] ID - [id number] ID - [id number] ID - [id number] ID - [id number]
[2021-08-18] MEDS ORDERED: HYDROCODONE/APAP 7.5/325 MG TAB ONE (18:53)
--- NOTE | 2021-08-18 19:20 | RAD REPORT ---
EXAM DESCRIPTION: RAD - Chest Single View - 08/18/2021 7:03 pm CLINICAL HISTORY: TRAUMA Chest pain. COMPARISON: No comparisons FINDINGS: Portable technique limits examination quality. The lungs are grossly clear. The heart is upper limit of normal in size. Fracture the proximal left h umerus metaphysis noted.
--- NOTE | 2021-08-18 19:29 | RAD REPORT ---
EXAM DESCRIPTION: RAD - Humerus Left - 08/18/2021 7:03 pm CLINICAL HISTORY: PAIN COMPARISON: No comparisons FINDINGS: Diffuse osteopenia is present. Mildly displaced and comminuted fracture the proximal left humerus is seen. No dislocation is evident.
--- NOTE | 2021-08-18 19:38 | ER ---
Nurse's Notes [facility] Name: Mary Kim Age: 71 yrs Sex: Female : 1950 Arrival Date: 08/18/2021 Time: 17:23 Bed 12 Private MD: Diagnosis: 2-part displaced fracture of surgical neck of left humerus Presentation: 08/18 17:39 Chief complaint: Patient states: pt states that she fell 2 days ago and hit her l upper 6 arm on the side of a curb. states pain has not gone away and the pain is worse with movement or palpation. Coronavirus screen: Vaccine status: Patient reports receiving the 2nd dose of the covid vaccine. Ebola Screen: No symptoms or risks identified at this time. Initial Sepsis Screen: Does the patient meet any 2 criteria? No. Patient's initial sepsis screen is negative. Does the patient have a suspected source of infection? No. Patient's initial sepsis screen is negative. Risk Assessment: Do you want to hurt yourself or someone else? Patient reports no desire to harm self or others. Onset of symptoms was August 16, 2021. 17:39 Method Of Arrival: Ambulatory [facility] 17:39 Acuity: ELIZABETH 3 [facility] Triage Assessment: 17:45 General: Appears distressed, uncomfortable, obese, well groomed, Behavior is [facility] cooperative. Pain: Complains of pain in left arm Pain does not radiate. Pain currently is 10 out of 10 on a pain scale. Quality of pain is described as aching, dull, Pain began suddenly, 2-3 days ago. Is continuous, Alleviated by repositioning, Aggravated by increased activity, repositioning. Musculoskeletal: Range of motion: limited in all extremities, Tenderness present in left arm. Injury Description: Bruise sustained to left arm. Historical: - PMHx: 18:00 Diabetes mellitus; Hypertensive disorder; Asthma; Chronic back pain; eo2 - PSHx: 18:00 left hip surgery; left rotator cuff; eo2 - Immunization history:: Adult Immunizations up to date, Flu vaccine is up to date. - Social history:: Smoking status: Patient denies any tobacco usage or history of. Screenin:02 Abuse screen: Denies threats or abuse. Nutritional screening: No deficits noted. eo2 Tuberculosis screening: No symptoms or risk factors identified. Fall Risk Fall in past 12 months (25 points). No IV (0 pts). Ambulatory Aid- Crutches/Cane/Walker (15 pts). Gait- Normal/Bed Rest/Wheelchair (0 pts) Mental Status- Oriented to own ability (0 pts). Total Lynch Fall Scale indicates Low Risk Score (25-44 pts). Placed close to Nursing Station Family Present and informed to notify staff if they need to leave bedside. Assessment: 17:56 General: Appears uncomfortable, noted sling to left arm placed in triage. Behavior is eo2 calm, cooperative. Pain: Complains of pain in left arm/shoulder pain s/p fall on Tuesday Pain began 2-3 days ago. Neuro: No deficits noted. Denies. Neuro: Denies headache/dizziness, denies hitting head or LOC with fall. Cardiovascular: No deficits noted. Heart tones S1 S2. Respiratory: No deficits noted. Breath sounds are clear bilaterally. GI: No signs and/or symptoms were reported involving the gastrointestinal system. Patient currently denies. Musculoskeletal: Reports pain in left arm left arm/shoulder pain s/p fall on Tuesday, reports her left knee gave out, noted bruising to left shoulder, and left knee. 18:00 Reassessment: Reassessment: pt asked if she'd like pain medication, pt refuses need at eo2 this time. 18:45 Reassessment: pt requesting for pain medication, Carly TATUM made aware. eo2 19:51 Reassessment: Patient is alert, oriented x 3, equal unlabored respirations, skin lp1 warm/dry/pink. left arm in sling. Vital Signs: 17:39 BP 140 / 57; Pulse 110; Resp 18; Temp 98.0(T); Pulse Ox 96% on R/A; Weight 90.72 kg; jh6 Height 5 ft. 0 in. (152.40 cm); Pain 10/10; 18:56 BP 127 / 59; Pulse 100; Resp 15; Pulse Ox 95% ; Pain 10/10; eo2 17:39 Body Mass Index 39.06 (90.72 kg, 152.40 cm) [facility] ED Course: 17:23 Patient arrived in ED. as 17:42 Triage completed. [facility] 17:47 Arm band placed on right wrist. [facility] 17:50 Ryan Carroll PA is PHCP. jr8 17:50 Jay Jay Sherman MD is Attending Physician. jr8 17:56 Joceline Ortiz, RN is Primary Nurse. eo2 18:02 Patient has correct armband on for positive identification. Bed in low position. Call eo2 light in reach. Door closed. Noise minimized. Family accompanied patient. 19:04 XRAY Humerus LEFT In Process Unspecified. EDMS 19:04 XRAY Chest (1 view) In Process Unspecified. EDMS 19:36 Bayron Carmona MD is Referral Physician. jr8 19:51 No provider procedures requiring assistance completed. Patient did not have IV access lp1 during this emergency room visit. Administered Medications: 18:56 Drug: [place] (HYDROcodone-acetaminophen) (7.5 mg-325 mg) 1 tabs Route: PO; eo2 19:45 Follow up: Response: No adverse reaction lp1 Outcome: 19:37 Discharge ordered by MD. jr8 19:51 Discharged to home ambulatory, with family. lp1 19:51 Condition: good 19:51 Discharge instructions given to patient, family, Instructed on discharge instructions, follow up and referral plans. medication usage, Demonstrated understanding of instructions, follow-up care, medications, Prescriptions given X 1. 19:51 Patient left the ED. lp1 Signatures: Dispatcher [employer] Crissy Carroll Laura, RN RN lp1 Ryan Carroll PA PA jr8 Jasmine Sanchez RN RN jh6 Joceline Ortiz, WYATT RN eo2 Corrections: (The following items were deleted from the chart) 17:45 17:44 PMHx: Diabetes - NIDDM; [place] [address] 17:45 17:44 PMHx: Hypertension; [place] [address]
--- NOTE | 2021-08-18 19:38 | EDPHYS ---
Physician Documentation [facility] Name: Mary Kim Age: 71 yrs Sex: Female : 1950 Arrival Date: 08/18/2021 Time: 17:23 Bed 12 Private MD: ED Physician Jay Jay Sherman HPI: 08/18 18:25 This 71 yrs old Female presents to ER via Ambulatory with complaints of Arm jr8 Injury - fell 08/16. 18:25 Severity of symptoms: At their worst the symptoms were moderate, in the emergency jr8 department the symptoms are unchanged. The patient has not experienced similar symptoms in the past. The patient has not recently seen a physician. This is a 71-year-old female patient that had an accidental mechanical fall on Tuesday landing on the left shoulder and arm. Patient since then has had bruising and pain that is not being relieved. Patient denies hitting her head or neck or having any loss of consciousness. Stated that she has a mild abrasion and bruising to the left knee but otherwise feels okay.. Historical: - PMHx: 18:00 Diabetes mellitus; Hypertensive disorder; Asthma; Chronic back pain; eo2 - PSHx: 18:00 left hip surgery; left rotator cuff; eo2 - Immunization history:: Adult Immunizations up to date, Flu vaccine is up to date. - Social history:: Smoking status: Patient denies any tobacco usage or history of. ROS: 18:25 Eyes: Negative for injury, pain, redness, and discharge, ENT: Negative for injury, jr8 pain, and discharge, Neck: Negative for injury, pain, and swelling, Cardiovascular: Negative for chest pain, palpitations, and edema, Respiratory: Negative for shortness of breath, cough, wheezing, and pleuritic chest pain, Abdomen/GI: Negative for abdominal pain, nausea, vomiting, diarrhea, and constipation, Back: Negative for injury and pain, Skin: Negative for injury, rash, and discoloration, Neuro: Negative for headache, weakness, numbness, tingling, and seizure. 18:25 MS/extremity: Positive for decreased range of motion, ecchymosis, pain, of the left arm. Exam: 18:25 Constitutional: This is a well developed, well nourished patient who is awake, alert, jr8 and in no acute distress. Head/Face: Normocephalic, atraumatic. Eyes: Pupils equal round and reactive to light, extra-ocular motions intact. Lids and lashes normal. Conjunctiva and sclera are non-icteric and not injected. Cornea within normal limits. Periorbital areas with no swelling, redness, or edema. ENT: Nares patent. No nasal discharge, no septal abnormalities noted. Tympanic membranes are normal and external auditory canals are clear. Oropharynx with no redness, swelling, or masses, exudates, or evidence of obstruction, uvula midline. Mucous membranes moist. Neck: Trachea midline, no thyromegaly or masses palpated, and no cervical lymphadenopathy. Supple, full range of motion without nuchal rigidity, or vertebral point tenderness. No Meningismus. Cardiovascular: Regular rate and rhythm with a normal S1 and S2. No gallops, murmurs, or rubs. Normal PMI, no JVD. No pulse deficits. Respiratory: Lungs have equal breath sounds bilaterally, clear to auscultation and percussion. No rales, rhonchi or wheezes noted. No increased work of breathing, no retractions or nasal flaring. Abdomen/GI: Soft, non-tender, with normal bowel sounds. No distension or tympany. No guarding or rebound. No evidence of tenderness throughout. Back: No spinal tenderness. No costovertebral tenderness. Full range of motion. Skin: Warm, dry with normal turgor. Normal color with no rashes, no lesions, and no evidence of cellulitis. 18:25 Chest/axilla: Inspection: ecchymosis, that is mild, of the left clavicle Palpation: tenderness, that is mild, of the left clavicle. 18:25 Musculoskeletal/extremity: Extremities: grossly normal except: noted in the left arm: Patient has moderate tenderness to the left proximal humeral region. Normal sensation present with 2+ radial pulses to affected extremity. Patient has normal range of motion from her elbow down without any direct pain. Decreased range of motion from the level of the distal humerus upward noted secondary to pain.. Vital Signs: 17:39 BP 140 / 57; Pulse 110; Resp 18; Temp 98.0(T); Pulse Ox 96% on R/A; Weight 90.72 kg; jh6 Height 5 ft. 0 in. (152.40 cm); Pain 10/10; 18:56 BP 127 / 59; Pulse 100; Resp 15; Pulse Ox 95% ; Pain 10/10; eo2 17:39 Body Mass Index 39.06 (90.72 kg, 152.40 cm) 6 MDM: 17:50 Patient medically screened. jr8 19:36 Data reviewed: vital signs, nurses notes, radiologic studies, plain films. Data jr8 interpreted: Pulse oximetry: on room air is 95 %. Interpretation: normal. Counseling: I had a detailed discussion with the patient and/or guardian regarding: the historical points, exam findings, and any diagnostic results supporting the discharge/admit diagnosis, radiology results, the need for outpatient follow up, a orthopedic surgeon, to return to the emergency department if symptoms worsen or persist or if there are any questions or concerns that arise at home. ED course: Patient already in a sling. We will keep her and then have her follow-up with orthopedics.. 08/18 18:19 Order name: XRAY Humerus LEFT; Complete Time: 19:38 jr8 08/18 18:19 Order name: XRAY Chest (1 view); Complete Time: 19:38 jr8 Administered Medications: 18:56 Drug: [place] (HYDROcodone-acetaminophen) (7.5 mg-325 mg) 1 tabs Route: PO; eo2 19:45 Follow up: Response: No adverse reaction lp1 Disposition: 08/19 07:09 Co-signature as Attending Physician, Jay Jay Sherman MD I agree with the assessment and rn plan of care. Attestation: The patient's history, exam findings, diagnostics, and a summary of any interventions or procedures was reviewed in detail with Ryan TATUM. Disposition Summary: 08/18/21 19:37 Discharge Ordered Location: Home jr8 Problem: new jr8 Symptoms: have improved jr8 Condition: Stable jr8 Diagnosis - 2-part displaced fracture of surgical neck of left humerus jr8 Followup: jr8 - With: Bayron Carmona MD - When: 2 - 3 days - Reason: Recheck today's complaints, Continuance of care, Re-evaluation by your physician Discharge Instructions: - Discharge Summary Sheet jr8 - Humerus Fracture Treated With Immobilization jr8 Forms: - Medication Reconciliation Form jr8 - Thank You Letter jr8 - Antibiotic Education jr8 - Prescription Opioid Use jr8 Prescriptions: - Tylenol-Codeine #3 300 mg-30 mg Oral - take 1 tablet by ORAL route every 6 hours As needed; 16 tablet; Refills: 0, jr8 Product Selection Permitted Signatures: Dispatcher [employer] Jay Jay Monroe MD MD rn Roszak, Josh, PA PA jr8 Jasmine Sanchez RN RN jh6 Joceline Ortiz RN RN eo2 Usha Hernandez RN lp1 Corrections: (The following items were deleted from the chart) 08/18 17:45 17:44 PMHx: Diabetes - NIDDM; [place] [address] 17:45 17:44 PMHx: Hypertension; [place] [address]
[2021-08-18 19:56] VITALS: TEMP 98
[2021-08-18 19:57] VITALS: BP 127/59; O2SAT 95
== END 2021-08-18 19:51 | disposition home or self-care (01) ==
LOC: ER 17:19
PROC: 2W39X1Z Immobilization of Left Upper Extremity using Splint (ICD-10-PCS; principal; 2021-08-18)
DX: S42.222A 2-part displaced fracture of surgical neck of left humerus, initial encounter for closed fracture (principal); W18.30XA Fall on same level, unspecified, initial encounter; I10 Essential (primary) hypertension
CPT/HCPCS: 71045; 99283

== ENCOUNTER 2024-05-02 20:27 | Emergency (ER) | payer OTHER ==
--- NOTE | 2024-05-02 21:31 | RAD REPORT ---
EXAM DESCRIPTION: CT - CTFB CLINICAL HISTORY: Pain;Swelling COMPARISON: No comparisons TECHNIQUE: Axial 2 mm thick images of the face were obtained with sagittal and coronal reconstructio n images. All CT scans are performed using dose optimization technique as appropriate and may include automated exposure control or mA/KV adjustment according to patient size. FINDINGS: No acute facial bone fracture is seen.4 cm hematoma adjacent to left zygoma.The mandible i s intact. The globes and orbital contents are grossly unremarkable.The paranasal sinuses and mastoids are clear . IMPRESSION: Negative for facial bone fracture. 4 cm hematoma adjacent to left zygoma.
--- NOTE | 2024-05-02 22:18 | RAD REPORT ---
EXAM DESCRIPTION: CT - Head C Spine Cap Wo Con - 05/02/2024 10:09 pm CLINICAL HISTORY: Trauma, head and neck injury. Chest, abdomen and pelvis pain. PAIN COMPARISON: No comparisons TECHNIQUE: CT head without contrast. CT cervical spine without contrast with coronal and sagittal reformatted images. CT chest, abdomen and pelvis without contrast with coronal and sagittal reformatted images of the [place] [facility]. All CT scans are performed using dose optimization technique as appropriate and may include automated exposure control or mA/KV adjustment according to patient size. FINDINGS: CT HEAD WITHOUT CONTRAST: No intracranial hemorrhage, hydrocephalus or extra-axial fluid collection. No areas of brain edema o r midline shift. 2.5 cm soft tissue hematoma adjacent to the left zygoma. The paranasal sinuses and mastoids are clear. The calvarium is intact. CT CERVICAL SPINE WITHOUT CONTRAST: No fracture or subluxation. The prevertebral soft tissues are normal in thickness. CT CHEST, ABDOMEN, PELVIS WITHOUT CONTRAST: NOTE: Lack of contrast is a significant limitation in the assessment of trauma related findings. Spec ifically, solid organ, vascular and bowel evaluation is significantly limited. The lungs are clear.No pneumothorax or pericardial/pleural fluid. No evidence of intra-abdominal visceral injury, free fluid or free air is seen within the above detai led limitations. Moderate stool is present throughout the colon. Postsurgical changes lower lumbar spine with mild anterolisthesis L5 on S1. No fractures. IMPRESSION: Negative for acute traumatic findings within the above detailed limitations.
--- NOTE | 2024-05-02 22:26 | ER ---
Nurse's Notes [facility] Name: Mary Kim Age: 74 yrs Sex: Female : 1950 Arrival Date: 05/02/2024 Time: 20:27 Bed 7 Private MD: Diagnosis: Fall on same level, unspecified;Atypical facial pain;Contusion of other part of head-left face, periorbital Presentation: 05/02 20:34 Chief complaint: Patient states: Was walking and she slipped and fell. Pt fell and hit cm10 her face. No LOC. Pt noted to have swelling to left cheek and eye. Ebola Screen: Patient denies travel to an Ebola-affected area in the 21 days before illness onset. No symptoms or risks identified at this time. 20:34 Method Of Arrival: Ambulatory cm10 20:40 Coronavirus screen: Client denies travel out of the [place] in the last 14 days. Initial cm10 Sepsis Screen: Does the patient meet any 2 criteria? No. Patient's initial sepsis screen is negative. Does the patient have a suspected source of infection? No. Patient's initial sepsis screen is negative. Risk Assessment: Do you want to hurt yourself or someone else? Patient reports no desire to harm self or others. Onset of symptoms was May 02, 2024. 20:40 Acuity: ELIZABETH 3 cm10 21:55 Care prior to arrival: None. Mechanism of Injury: Fall from standing position. Trauma br2 event details: Injury occurred at: 19:30. Triage Assessment: 20:41 General: Appears in no apparent distress. uncomfortable, Behavior is calm, cooperative. cm10 Neuro: No deficits noted. Level of Consciousness is awake, alert, obeys commands, Oriented to person, place, time, situation, Appropriate for age. Historical: - Allergies: 20:40 No Known Allergies; cm10 - Home Meds: 20:35 Trijardy XR 12.5-2.5-1,000 mg oral tablet,immed \T\ ext release,biphasic 24hr 1 tab twice cm10 a day [Active]; atorvastatin 20 mg oral tablet daily [Active]; montelukast 10 mg oral tablet daily [Active]; potassium chloride 20 mEq Oral Tablet, ER Particles/Crystals 1 tab daily [Active]; gabapentin 300 mg oral capsule 1 cap 3 times per day [Active]; losartan 25 mg oral tablet 1 tab daily [Active]; esomeprazole magnesium 40 mg oral capsule,delayed release (e.c.) 1 cap daily [Active]; duloxetine 30 mg oral capsule,delayed release (e.c.) 1 cap daily [Active]; nifedipine 30 mg Oral tablet, extended release 1 tab daily [Active]; Spiriva Respimat 1.25 mcg/actuation inhalation Mist [Active]; fluticasone propionate 50 mcg/actuation intranasal spray, suspension [Active]; Wixela Inhub 250-50 mcg/dose inhalation Blister, With Inhalation Device 1 inhalation 2 times per day [Active]; - PMHx: 20:35 Asthma; chronic back pain; diabetes mellitus; Hypertensive disorder; cm10 - PSHx: 20:35 left hip surgery; Left Rotator Cuff; cm10 - Immunization history:: Adult Immunizations up to date. - Infectious Disease History:: Denies. - Immunization history: Last tetanus immunization: - up to date. - Social history:: Smoking status: Patient denies any tobacco usage or history of. - Family history:: not pertinent. Screenin:40 [facility] ED Fall Risk Assessment (Adult) History of falling in the last 3 months, br2 including since admission Yes- single mechanical fall (1 pt) Confusion or Disorientation No (0 pts) Intoxicated or Sedated No (0 pts) Impaired Gait No (0 pts) Mobility Assist Device Used No (0 pt) Altered Elimination No (0 pt) Score/Fall Risk Level 0 - 2 = Low Risk Oriented to surroundings. Abuse screen: Denies threats or abuse. Nutritional screening: No deficits noted. Tuberculosis screening: No symptoms or risk factors identified. Primary Survey: 21:44 NO uncontrolled hemorrhage observed. A: The client is awake and alert. The airway is br2 patent. The client is alert. Breathing/Chest: Spontaneous respiratory effort, equal unlabored respirations, breath sounds clear bilaterally, regular pattern, symmetrical chest rise and fall. Respiratory effort: unlabored, Breath sounds: clear, Respiratory pattern: regular, Chest inspection: symmetrical rise and fall of the chest. Circulation: No external hemorrhage present. Regular and strong central pulse, skin warm/dry/normal color. Hemorrhage: No external hemorrhage noted. Pulses: Skin color: pink, Skin temperature: warm. Disability Client is alert. Exposure/Environment: There is no evidence of uncontrolled external bleeding. A warming method has been applied: A warm blanket has been provided to the patient. 21:51 Reassessment Breathing: Spontaneous respiratory effort, equal unlabored respirations, br2 breath sounds clear bilaterally, regular pattern with symmetrical chest rise and fall. Assessment: 21:22 General: Appears uncomfortable, well groomed, Behavior is calm, cooperative, Smells of br2 Reports Denies. Pain: Complains of pain in face and left eye Pain does not radiate. Pain at worst was 10 out of 10 on a pain scale. Quality of pain is described as aching, Pain began 2 hours ago. Is continuous, Alleviated by nothing. Aggravated by Noted to be Also complains of no other associated symptoms. Current management - is no interventions. Goal of pain control is to. 22:11 General: patient out of bed to bathroom via wheelchair with assist. br2 Vital Signs: 20:40 BP 174 / 79; Pulse 82; Resp 16; Temp 98.4; Pulse Ox 98% on R/A; Weight 77.11 kg; Height cm10 5 ft. 4 in. ; Pain 10/10; 21:38 BP 156 / 64; Pulse 92; Resp 18; Pulse Ox 98% ; br2 20:40 Body Mass Index 29.18 (77.11 kg, 162.56 cm) cm10 20:40 Pain Scale: Adult cm10 [place] Coma Score: 21:46 Eye Response: spontaneous(4). Motor Response: obeys commands(6). Verbal Response: br2 oriented(5). Total: 15. Trauma Score (Adult): 21:46 Eye Response: spontaneous(1); Verbal Response: oriented(1); Motor Response: obeys br2 commands(2); Systolic BP: > 89 mm Hg(4); Respiratory Rate: 10 to 29 per min(4); Jennifer Score: 15; Trauma Score: 12 ED Course: 20:31 Patient arrived in ED. gm2 20:41 Triage completed. cm10 20:41 Arm band placed on Patient placed in an exam room, on a stretcher. cm10 20:51 Jim Davidson MD is Attending Physician. vini 21:07 Michelle Irby RN is Primary Nurse. al5 21:15 CT Facial Bones W/O Con In Process Unspecified. EDMS 22:11 Head C Spine Cap Wo Con In Process Unspecified. EDMS 22:26 Argentina Smith MD is Referral Physician. vini 23:13 No provider procedures requiring assistance completed. Patient did not have IV access br2 during this emergency room visit. 23:14 Patient has correct armband on for positive identification. Bed in low position. Call br2 light in reach. Side rails up X2. Provided Education on: discharge and follow up . 23:15 Patient maintains SpO2 saturation greater than 95% on room air. br2 23:15 Thermoregulation: warm blanket given to patient. br2 Administered Medications: No medications were administered Medication: 21:41 VIS not applicable for this client. br2 Outcome: 22:26 Discharge ordered by . vini 23:16 Discharged to home via wheelchair, with family, br2 23:16 Condition: good 23:16 Discharge instructions given to patient, family, Instructed on discharge instructions, follow up and referral plans. medication usage, Demonstrated understanding of instructions, follow-up care, medications, Prescriptions given X 2, 23:16 Patient's length of stay was not longer than 2 hours. 23:18 Patient left the ED. br2 Signatures: Dispatcher [employer] EDMS Jim Davidson MD MD cha Martinez, Clarissa, RN RN cm10 Gela Moscoso gm2 Michelle Irby RN RN al5 Serenity Palmer, RN RN br2 Corrections: (The following items were deleted from the chart) 22:11 21:15 In radiology for Head C Spine MPR Wo Con+CT.RAD.BRZ. EDMS EDMS
--- NOTE | 2024-05-02 22:26 | EDPHYS ---
Physician Documentation [facility] Name: Mary Kim Age: 74 yrs Sex: Female : 1950 Arrival Date: 05/02/2024 Time: 20:27 Bed 7 Private MD: ED Physician Jim Davidson HPI: 05/02 21:12 This 74 yrs old Female presents to ER via Ambulatory with complaints of Fall vini Injury. 21:12 Details of fall: The patient fell from an upright position, while walking. Onset: The vini symptoms/episode began/occurred just prior to arrival. Associated injuries: The patient sustained injury to the head, contusion, deformity, hematoma, pain, swelling. Severity of symptoms: At their worst the symptoms were moderate, in the emergency department the symptoms are unchanged. The patient has not experienced similar symptoms in the past. fall to face. Historical: - Allergies: 20:40 No Known Allergies; cm10 - Home Meds: 20:35 Trijardy XR 12.5-2.5-1,000 mg oral tablet,immed \T\ ext release,biphasic 24hr 1 tab twice cm10 a day [Active]; atorvastatin 20 mg oral tablet daily [Active]; montelukast 10 mg oral tablet daily [Active]; potassium chloride 20 mEq Oral Tablet, ER Particles/Crystals 1 tab daily [Active]; gabapentin 300 mg oral capsule 1 cap 3 times per day [Active]; losartan 25 mg oral tablet 1 tab daily [Active]; esomeprazole magnesium 40 mg oral capsule,delayed release (e.c.) 1 cap daily [Active]; duloxetine 30 mg oral capsule,delayed release (e.c.) 1 cap daily [Active]; nifedipine 30 mg Oral tablet, extended release 1 tab daily [Active]; Spiriva Respimat 1.25 mcg/actuation inhalation Mist [Active]; fluticasone propionate 50 mcg/actuation intranasal spray, suspension [Active]; Wixela Inhub 250-50 mcg/dose inhalation Blister, With Inhalation Device 1 inhalation 2 times per day [Active]; - PMHx: 20:35 Asthma; chronic back pain; diabetes mellitus; Hypertensive disorder; cm10 - PSHx: 20:35 left hip surgery; Left Rotator Cuff; cm10 - Immunization history:: Adult Immunizations up to date. - Infectious Disease History:: Denies. - Immunization history: Last tetanus immunization: - up to date. - Social history:: Smoking status: Patient denies any tobacco usage or history of. - Family history:: not pertinent. ROS: 21:12 Constitutional: Negative for fever, chills, and weight loss, Eyes: Negative for injury, vini pain, redness, and discharge, Neck: Negative for injury, pain, and swelling, Cardiovascular: Negative for chest pain, palpitations, and edema, Respiratory: Negative for shortness of breath, cough, wheezing, and pleuritic chest pain, Abdomen/GI: Negative for abdominal pain, nausea, vomiting, diarrhea, and constipation, Back: Negative for injury and pain, : Negative for injury, bleeding, discharge, and swelling, MS/Extremity: Negative for injury and deformity, Skin: Negative for injury, rash, and discoloration, Neuro: Negative for headache, weakness, numbness, tingling, and seizure, Psych: Negative for depression, anxiety, suicide ideation, homicidal ideation, and hallucinations, Allergy/Immunology: Negative for hives, rash, and allergies, Endocrine: Negative for neck swelling, polydipsia, polyuria, polyphagia, and marked weight changes, Hematologic/Lymphatic: Negative for swollen nodes, abnormal bleeding, and unusual bruising, 21:12 ENT: Positive for of the left ear, left eye and left zoroastrianism, Exam: 21:12 Constitutional: This is a well developed, well nourished patient who is awake, alert, vini and in no acute distress. Eyes: Pupils equal round and reactive to light, extra-ocular motions intact. Lids and lashes normal. Conjunctiva and sclera are non-icteric and not injected. Cornea within normal limits. Periorbital areas with no swelling, redness, or edema. ENT: Nares patent. No nasal discharge, no septal abnormalities noted. Tympanic membranes are normal and external auditory canals are clear. Oropharynx with no redness, swelling, or masses, exudates, or evidence of obstruction, uvula midline. Mucous membranes moist. Neck: Trachea midline, no thyromegaly or masses palpated, and no cervical lymphadenopathy. Supple, full range of motion without nuchal rigidity, or vertebral point tenderness. No Meningismus. Chest/axilla: Normal chest wall appearance and motion. Nontender with no deformity. No lesions are appreciated. Cardiovascular: Regular rate and rhythm with a normal S1 and S2. No gallops, murmurs, or rubs. Normal PMI, no JVD. No pulse deficits. Respiratory: Lungs have equal breath sounds bilaterally, clear to auscultation and percussion. No rales, rhonchi or wheezes noted. No increased work of breathing, no retractions or nasal flaring. Abdomen/GI: Soft, non-tender, with normal bowel sounds. No distension or tympany. No guarding or rebound. No evidence of tenderness throughout. Back: No spinal tenderness. No costovertebral tenderness. Full range of motion. Skin: Warm, dry with normal turgor. Normal color with no rashes, no lesions, and no evidence of cellulitis. MS/ Extremity: Pulses equal, no cyanosis. Neurovascular intact. Full, normal range of motion. Neuro: Awake and alert, GCS 15, oriented to person, place, time, and situation. Cranial nerves II-XII grossly intact. Motor strength 5/5 in all extremities. Sensory grossly intact. Cerebellar exam normal. Normal gait. Psych: Awake, alert, with orientation to person, place and time. Behavior, mood, and affect are within normal limits. 21:12 Head/face: Noted is hematoma, swelling, that is moderate, of the left ear, left cheek, left eye and left zoroastrianism, Vital Signs: 20:40 BP 174 / 79; Pulse 82; Resp 16; Temp 98.4; Pulse Ox 98% on R/A; Weight 77.11 kg; Height cm10 5 ft. 4 in. ; Pain 10/10; 21:38 BP 156 / 64; Pulse 92; Resp 18; Pulse Ox 98% ; br2 20:40 Body Mass Index 29.18 (77.11 kg, 162.56 cm) cm10 20:40 Pain Scale: Adult cm10 [place] Coma Score: 21:46 Eye Response: spontaneous(4). Motor Response: obeys commands(6). Verbal Response: br2 oriented(5). Total: 15. Trauma Score (Adult): 21:46 Eye Response: spontaneous(1); Verbal Response: oriented(1); Motor Response: obeys br2 commands(2); Systolic BP: > 89 mm Hg(4); Respiratory Rate: 10 to 29 per min(4); Jennifer Score: 15; Trauma Score: 12 MDM: 20:51 Patient medically screened. vini 21:15 Differential diagnosis: closed head injury, contusion. Data reviewed: vital signs, vini nurses notes. Consideration of Admission/Observation Escalation of care including admission/observation considered. I considered the following discharge prescriptions or medication management in the emergency department Medications were administered in the Emergency Department. See MAR. Independent interpretation of the following test(s) in the Emergency Department CT Scan: My interpretation is ct head, face. Historians other than the Patient: Family Member: family well informed. Care significantly affected by the following chronic conditions: Diabetes, Hypertension, Obesity, cbp, asthma. Counseling: I had a detailed discussion with the patient and/or guardian regarding the historical points, exam findings, and any diagnostic results supporting the discharge/admit diagnosis, lab results, radiology results, the need for outpatient follow up, for definitive care, an ENT specialist, a family practitioner. 05/02 20:57 Order name: CT Facial Bones W/O Con vini 05/02 22:11 Order name: Head C Spine Cap Wo Con EDMS 05/02 20:57 Order name: Ice pack; Complete Time: 21:13 vini Administered Medications: No medications were administered Disposition Summary: 05/02/24 22:26 Discharge Ordered Notes: Location: Home vini Problem: new vini Symptoms: have improved vini Condition: Stable vini Diagnosis - Fall on same level, unspecified vini - Atypical facial pain vini - Contusion of other part of head - left face, periorbital vini Followup: vini - With: Private Physician - When: 2 - 3 days - Reason: Recheck today's complaints, Continuance of care, Re-evaluation by your physician Followup: vini - With: Argentina Smith MD - When: 2 - 3 days - Reason: Recheck today's complaints, Continuance of care, Re-evaluation by your physician Discharge Instructions: - Discharge Summary Sheet vini - Hematoma, [id number] vini - Hematuria, Adult vini - Fall Prevention in the Home, Adult vini - Fall Prevention in the Home, Adult, [id number] vini Forms: - Medication Reconciliation Form vini - Antibiotic Education vini - Prescription Opioid Use vini - Patient Portal Instructions [facility] - Leadership Thank You Letter [facility] Prescriptions: - acetaminophen-codeine 300-30 mg Oral tablet - take 1 tablet ORAL route every 4-6 hours as needed for pain; 15 tablet; vini Refills: 0, Product Selection Permitted - Cephalexin 500 mg Oral capsule - take 1 capsule ORAL route every 6 hours for 7 days; 28 capsule; Refills: 0, vini Product Selection Permitted Signatures: Dispatcher [employer] EDJim Dougherty MD MD cha Martinez, Clarissa RN RN cm10 Serenity Palmer RN RN br2 Corrections: (The following items were deleted from the chart) 20:58 20:58 Facial Bones W/ MPR+CT.RAD.BRZ ordered. EDMS EDMS 22:11 20:58 Head C Spine MPR Wo Con+CT.RAD.BRZ ordered. EDMS EDMS
[2024-05-02 23:22] VITALS: TEMP 98.4; O2SAT 98
[2024-05-02 23:24] VITALS: BP 156/64
== END 2024-05-02 23:18 | disposition home or self-care (01) ==
LOC: ER 20:27
DX: G50.1 Atypical facial pain (principal); S00.83XA Contusion of other part of head, initial encounter; W18.30XA Fall on same level, unspecified, initial encounter; E11.9 Type 2 diabetes mellitus without complications; I10 Essential (primary) hypertension
CPT/HCPCS: 70450; 70486; 71250; 72125; 76377